=== PATIENT | male | born 1950 | race American Indian/Alaskan Native ===

== ENCOUNTER 2019-06-06 13:03 | Emergency (ER) | payer OTHER, MEDICARE ==
[2019-06-06 14:54] VITALS: BP 145/69
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
== END 2019-06-06 16:30 | disposition home or self-care (01) ==
LOC: ED 13:03
DX: M54.5 Low back pain (principal); R10.9 Unspecified abdominal pain
CPT/HCPCS: 99282